=== PATIENT | female | born 2000 | race Caucasian/White ===

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

== ENCOUNTER → 2018-06-03 | Outpatient (CLI) | payer OTHER ==
--- NOTE | 2018-06-03 10:47 | RADIOLOGY REPORT (SQ) ---
EXAM DESCRIPTION: U/S ABDOMEN LIMITED W/O DOP COMPLETED DATE/TIME: 06/03/2018 9:40 am REASON FOR STUDY: ELEVATED LFT R74.8 ABNORMAL LEVELS OF OTHER SERUM ENZYMES COMPARISON: None. TECHNIQUE: Dynamic and static grayscale images acquired of the abdomen and recorded on PACS. Additio nal selected color Doppler and spectral images recorded. Note: Study does not meet criteria for complete doppler/duplex scan LIMITATIONS: None. FINDINGS: PANCREAS: The majority of the pancreas is obscured by overlying bowel gas. Pancreatic hea d is unremarkable in appearance. LIVER: The liver is echogenic consistent with fatty infiltration. No focal masses. LIVER VASCULATURE: Normal directional flow of the main portal vein and hepatic veins. GALLBLADDER: No stones. Normal wall thickness. No pericholecystic fluid. ULTRASOUND-DETECTED ROSS'S SIGN: Negative. INTRAHEPATIC DUCTS AND COMMON DUCT: CBD and intrahepatic ducts normal caliber. No filling defects. INFERIOR VENA CAVA: Normal flow. AORTA: No aneurysm. RIGHT KIDNEY:Normal size. Normal echogenicity. No solid or suspicious masses. No hydronephrosis. No c alcifications. PERITONEAL AND PLEURAL SPACES: No ascites or effusions. OTHER: No other significant finding. IMPRESSION: Fatty infiltrated liver. No other significant findings. TECHNICAL DOCUMENTATION: JOB ID: [id number] [employer]- All Rights Reserved Reading location - IP/workstation name: [email or web address]
== END ==
LOC: RAD 08:57
PROVIDERS: ATTEND Physician Assistant
DX: R74.8 Abnormal levels of other serum enzymes (principal)
CPT/HCPCS: 76705

== ENCOUNTER → 2018-06-29 | Outpatient (CLI) | payer OTHER ==
[2018-06-29 17:27] LABS: ABSOLUTE EOSINOPHILS # (AUTO) 0.2 10^3/uL (0.0-0.6); ABSOLUTE MONOCYTES (AUTO) 0.5 10^3/uL (0.1-1.4); ABSOLUTE NEUT (AUTO) 5.9 10^3/uL (1.7-8.2); BASOPHILS % (AUTO) 0.4 % (0-2); EOSINOPHILS % (AUTO) 2.3 % (0-6); HEMATOCRIT 41.1 % (36.0-47.0); HEMOGLOBIN 13.7 g/dL (12.0-15.5); LYMPHOCYTES % (AUTO) 22.9 % (13-45); MEAN CORPUSCULAR HEMOGLOBIN 29.5 pg (27.0-33.4); MEAN CORPUSCULAR HGB CONC 33.5 g/dL (32.0-36.0); MEAN CORPUSCULAR VOLUME 88 fl (80-97); MONOCYTES % (AUTO) 5.5 % (3-13); PLATELET COUNT 235 10^3/uL (150-450); RED BLOOD COUNT 4.66 10^6/uL (3.72-5.28); RED CELL DISTRIBUTION WIDTH 14.4 % (11.5-14.0); SEGMENTED NEUTROPHILS % (AUTO) 68.9 % (42-78); TOTAL CELLS COUNTED % (AUTO) 100 %; WHITE BLOOD COUNT 8.6 10^3/uL (4.0-10.5)
[2018-06-29 18:01] LABS: ALANINE AMINOTRANSFERASE 50 U/L (9-52); ALBUMIN 4.2 g/dL (3.5-5.0); ALKALINE PHOSPHATASE 84 U/L (38-126); ANION GAP 13 (5-19); ASPARTATE AMINO TRANSFERASE 30 U/L (14-36); BILIRUBIN,DIRECT 0.2 mg/dL (0.0-0.4); BILIRUBIN,TOTAL 0.4 mg/dL (0.2-1.3); BLOOD UREA NITROGEN 11 mg/dL (7-20); CALCIUM 9.5 mg/dL (8.4-10.2); CARBON DIOXIDE 26 mmol/L (22-30); CHLORIDE 105 mmol/L (98-107); GLUCOSE 78 mg/dL (75-110); LIPASE 71.2 U/L (23-300); POTASSIUM 4.4 mmol/L (3.6-5.0); SODIUM 143.5 mmol/L (137-145); TOTAL PROTEIN 7.2 g/dL (6.3-8.2)
== END ==
LOC: OD 16:25
PROVIDERS: ATTEND Physician Assistant
DX: R10.84 Generalized abdominal pain (principal)
CPT/HCPCS: 36415; 80053; 83690; 85025

== ENCOUNTER 2018-09-04 23:17 | Emergency (ER) | payer OTHER ==
[2018-09-04 23:56] VITALS: BP 112/73
== END 2018-09-05 02:00 | disposition left against medical advice (07) ==
LOC: ER 23:17
DX: Z53.21 Procedure and treatment not carried out due to patient leaving prior to being seen by health care provider (principal); R10.2 Pelvic and perineal pain

== ENCOUNTER 2018-09-05 14:07 | Emergency (ER) | payer OTHER ==
[2018-09-05 14:30] VITALS: BP 110/67
--- NOTE | 2018-09-05 14:56 | ER Document Report ---
ED Medical Screen (RME) - General Chief Complaint: Lower Abdominal Pain Stated Complaint: ABDOMINAL PAIN Time Seen by Provider: 09/05/18 14:52 Primary Care Provider: FRANCIS RIGGINS PA [Primary Care Provider] - Follow up as needed Mode of Arrival: Ambulatory Information source: Patient Notes: 18-year-old female presented to ED for right pelvic pain. She states she had her last menstrual period was 08/13/2018. She states the pain has been for 2 days she also has pain in her cervix. She is alert oriented respirations regular and unlabored no nausea vomiting or diarrhea. She states her primary care center to the emergency room because they did not have time to get a CT scan. She states she does not know if she is or not. The pain is in the right pelvic area not in the right lower quadrant. I have greeted and performed a rapid initial assessment of this patient. A comprehensive ED assessment and evaluation of the patient, analysis of test r esults and completion of medical decision making process will be conducted by an additional ED providers. Dictation of this chart was performed using voice recognition software; therefore, there may be some unintended grammatical errors. TRAVEL OUTSIDE OF THE [place] IN LAST 30 DAYS: No - Related Data Allergies/Adverse Reactions: No Known Drug Allergies Allergy (Verified 11/05/17 00:12) Past Medical History Renal/ Medical History: Denies: Hx Peritoneal Dialysis Physical Exam - Vital signs Vitals: Temp Pulse Resp BP Pulse Ox 98.5 F 83 16 110/67 98 09/05/18 14:29 09/05/18 14:29 09/05/18 14:29 09/05/18 14:29 09/05/18 14:29 Course - Vital Signs Vital signs: Temp Pulse Resp BP Pulse Ox 98.5 F 83 16 110/67 98 09/05/18 14:29 09/05/18 14:29 09/05/18 14:29 09/05/18 14:29 09/05/18 14:29 Doctor's Discharge - Discharge Referrals: FRANCIS RIGGINS PA [Primary Care Provider] - Follow up as needed
[2018-09-05 15:54] LABS: ALANINE AMINOTRANSFERASE 50 U/L (9-52); ALBUMIN 4.4 g/dL (3.5-5.0); ALKALINE PHOSPHATASE 96 U/L (38-126); ANION GAP 8 (5-19); ASPARTATE AMINO TRANSFERASE 34 U/L (14-36); BILIRUBIN,DIRECT 0.2 mg/dL (0.0-0.4); BILIRUBIN,TOTAL 0.3 mg/dL (0.2-1.3); BLOOD UREA NITROGEN 7 mg/dL (7-20); CALCIUM 9.2 mg/dL (8.4-10.2); CARBON DIOXIDE 27 mmol/L (22-30); CHLORIDE 103 mmol/L (98-107); GLUCOSE 82 mg/dL (75-110); POTASSIUM 3.9 mmol/L (3.6-5.0); SODIUM 138.3 mmol/L (137-145); TOTAL PROTEIN 7.1 g/dL (6.3-8.2)
[2018-09-05 15:59] LABS: APPEARANCE,URINE CLEAR; BILIRUBIN,URINE NEGATIVE (NEGATIVE); COLOR,URINE YELLOW; GLUCOSE, URINE NEGATIVE (NEGATIVE); KETONES,URINE NEGATIVE (NEGATIVE); LEUKOCYTE ESTERASE,URINE LARGE (NEGATIVE); NITRITE,URINE NEGATIVE (NEGATIVE); PROTEIN,URINE NEGATIVE (NEGATIVE); URINE SPECIFIC GRAVITY 1.017; UROBILINOGEN,URINE NEGATIVE mg/dL (<2.0)
--- NOTE | 2018-09-05 16:31 | RADIOLOGY REPORT (SQ) ---
EXAM DESCRIPTION: U/S NON-OB PELVIS TV W/O DOP COMPLETED DATE/TIME: 09/05/2018 4:19 pm REASON FOR STUDY: Right pelvic pain COMPARISON: None. TECHNIQUE: Dynamic and static grayscale images acquired of the pelvis via transvaginal approach and recorded on PACS. Additional selected color Doppler and spectral images recorded. LIMITATIONS: None. FINDINGS: UTERUS: Contour normal. No mass. ENDOMETRIAL STRIPE: No focal or generalized thickening. No masses. CERVIX: Nabothian cysts. RIGHT OVARY AND DOPPLER: Normal size. A complex solid appearing 1.5 x 1.3 x 1.1 cm area with periphe ral blood flow demonstrated. Normal arterial vascular flow without evidence for torsion. LEFT OVARY AND DOPPLER: Normal size. No worrisome masses. Normal arterial vascular flow without evide nce for torsion. FREE FLUID: Small to mild amount of free fluid in the cul-de-sac may be on a physiologic basis. OTHER: No other significant finding. MEASUREMENTS: UTERUS: 6.9 x 4.6 x 3.7 cm ENDOMETRIAL STRIPE: 1.5 cm RIGHT OVARY: 3.6 x 3.2 x 2.5 cm LEFT OVARY: 2.7 x 2.8 x 1.5 cm IMPRESSION: 1. A complex solid appearing area in the right ovary. Correlation suggested. 2. Small subcentimeter Nabothian cyst in the cervix region. 3. Small to mild amount of free fluid in the cul-de-sac may be on a physiologic basis. TECHNICAL DOCUMENTATION: JOB ID: [id number] [employer]- All Rights Reserved Rev-07/16 Reading location - IP/workstation name: [email or web address]
[2018-09-05 16:41] LABS: ABSOLUTE EOSINOPHILS # (AUTO) 0.3 10^3/uL (0.0-0.6); ABSOLUTE LYMPHOCYTES (AUTO) 2.6 10^3/uL (0.5-4.7); ABSOLUTE MONOCYTES (AUTO) 0.6 10^3/uL (0.1-1.4); ABSOLUTE NEUT (AUTO) 7.3 10^3/uL (1.7-8.2); BASOPHILS % (AUTO) 0.3 % (0-2); EOSINOPHILS % (AUTO) 2.6 % (0-6); HEMATOCRIT 41.1 % (36.0-47.0); HEMOGLOBIN 13.9 g/dL (12.0-15.5); LYMPHOCYTES % (AUTO) 24.4 % (13-45); MEAN CORPUSCULAR HEMOGLOBIN 29.6 pg (27.0-33.4); MEAN CORPUSCULAR HGB CONC 33.8 g/dL (32.0-36.0); MEAN CORPUSCULAR VOLUME 88 fl (80-97); MONOCYTES % (AUTO) 5.2 % (3-13); PLATELET COUNT 250 10^3/uL (150-450); RED BLOOD COUNT 4.69 10^6/uL (3.72-5.28); RED CELL DISTRIBUTION WIDTH 13.6 % (11.5-14.0); SEGMENTED NEUTROPHILS % (AUTO) 67.5 % (42-78); TOTAL CELLS COUNTED % (AUTO) 100 %; WHITE BLOOD COUNT 10.8 10^3/uL (4.0-10.5)
[2018-09-05] MEDS ORDERED: NORMAL SALINE 1000 ML 1,000 ML IV ONE (19:31)
[2018-09-05] MEDS ORDERED: MORPHINE SULFATE 10 MG/ML INJ IV ONE (19:31)
[2018-09-05] MEDS ORDERED: ONDANSETRON HCL INJ/PF 4 MG/2 ML SDV IV ONE (19:31)
--- NOTE | 2018-09-05 21:36 | ER Document Report ---
ED General - General Chief Complaint: Lower Abdominal Pain Stated Complaint: ABDOMINAL PAIN Time Seen by Provider: 09/05/18 14:52 Primary Care Provider: FRANCIS RIGGINS PA [Primary Care Provider] - Follow up in 3-5 days Mode of Arrival: Ambulatory TRAVEL OUTSIDE OF THE [place] IN LAST 30 DAYS: No - HPI Notes: 18-year-old female to the emergency department with with complaints of right-sided pelvic pain that has gotten progressively worse since last night with associated urinary frequency and dysuria. She admits to vaginal discharge as well but denies any concerns for STDs. She was seen by her primary care physician and sent over for further evaluation for right lower quadrant abdominal pain. She states that her period was 2 weeks ago and she has never had an STD. States that she feels like she has pressure in her lower abdomen. Denies any fevers, chills, chest pain, shortness of breath, nausea, vomiting, diarrhea, headache. States she had a pelvic exam at her primary care's office today - Related Data Allergies/Adverse Reactions: No Known Drug Allergies Allergy (Verified 11/05/17 00:12) Past Medical History - General Information source: Patient, Relative - Social History Smoking Status: Never Smoker Frequency of alcohol use: None Drug Abuse: None Lives with: Spouse/Significant other Family History: Reviewed & Not Pertinent Patient has suicidal ideation: No Patient has homicidal ideation: No Renal/ Medical History: Denies: Hx Peritoneal Dialysis Review of Systems - Review of Systems Constitutional: denies: Chills, Fever EENT: No symptoms reported Cardiovascular: denies: Chest pain, Palpitations Respiratory: denies: Cough, Short of breath Gastrointestinal: Abdominal pain, Nausea, Poor appetite. denies: Diarrhea, Vomiting Genitourinary: Dysuria, Frequency, Urgency. denies: Flank pain, Hematuria Female Genitourinary: Vaginal discharge, Vaginal bleeding. denies: , Vaginal odor, Painful intercourse Musculoskeletal: No symptoms reported Skin: No symptoms reported Neurological/Psychological: No symptoms reported -: Yes All other systems reviewed and negative Physical Exam - Vital signs Vitals: Temp Pulse Resp BP Pulse Ox 98.5 F 83 16 110/67 98 09/05/18 14:29 09/05/18 14:29 09/05/18 14:29 09/05/18 14:29 09/05/18 14:29 Interpretation: Normal - General General appearance: Appears well In distress: Mild - Mild pain discomfort - HEENT Head: Normocephalic, Atraumatic Eyes: Normal Pupils: PERRL - Respiratory Respiratory status: No respiratory distress Chest status: Nontender Breath sounds: Normal Chest palpation: Normal - Cardiovascular Rhythm: Regular Heart sounds: Normal auscultation Murmur: No - Abdominal Inspection: Obese Distension: No distension Bowel sounds: Normal Tenderness: Tender - Positive tenderness to palpation over the right lower quadrant with guarding. No rebound. No Rovsing's. Negative Stern sign. Nontender to palpation to the left lower quadrant or suprapubic abdomen Organomegaly: No organomegaly - Genitourinary External exam: Normal Speculum exam: No: Other - Patient declined speculum exam because she already had a speculum exam at her primary care physician's Vaginal bleeding: Mild Bimanuel exam: Adnexal tenderness - There is mild tenderness to palpation to bilateral adnexa but the palpation to the right adnexa is significantly worse. Patient states that she has some mild cervical discomfort with palpation to the cervix. She has mild vaginal bleeding - Back Back: Normal. No: CVA tenderness - Extremities General upper extremity: Normal inspection, Nontender, Normal color, Normal ROM, Normal temperature General lower extremity: Normal inspection, Nontender, Normal color, Normal ROM, Normal temperature, Normal weight bearing. No: Brant's sign - Neurological Neuro grossly intact: Yes Cognition: Normal Orientation: AAOx4 T[place]i Coma Scale Eye Opening: Spontaneous [place] Coma Scale Verbal: Oriented [place] Coma Scale Motor: Obeys Commands T[place]i Coma Scale Total: 15 Speech: Normal Motor strength normal: LUE, RUE, LLE, RLE Sensory: Normal - Psychological Associated symptoms: Normal affect, Normal mood - Skin Skin Temperature: Warm Skin Moisture: Dry Skin Color: Normal Course - Vital Signs Vital signs: Temp Pulse Resp BP Pulse Ox 98.5 F 83 16 110/67 98 09/05/18 14:29 09/05/18 14:29 09/05/18 14:29 09/05/18 14:29 09/05/18 14:29 - Laboratory Result Diagrams: 09/05/18 15:10 09/05/18 15:10 Laboratory results interpreted by me: 09/05/18 09/05/18 15:10 15:10 WBC 10.8 H Urine Blood SMALL H Ur Leukocyte Esterase LARGE H - Diagnostic Test Radiology reviewed: Image reviewed, Reports reviewed Radiology results interpreted by me: 09/06/18 noted ultrasound reading with possible right ovarian cyst. She is very tender to the right lower quadrant on exam and has some mild leukocytosis. Noted UTI. Despite other possibilities for her right pelvic pain such as ovarian cyst and UTI do think it is prudent to evaluate for possible appendicitis. She has never had an appendectomy. We will plan for CT of the abdomen for further evaluation. Noted CT reading which further comments on to right hemorrhagic ovarian cyst. No evidence of appendicitis. Has had improvement of pain since pain medicines. Rounded with her and her to discuss CT results. Will discharge with pain medicine as well as antibiotics for urinary tract infection. We will have her follow with [facility] for repeat ultrasound in 10 to 14 days. Urged to return if worsening pain, intractable nausea vomiting, fevers, unable to keep her medicines down. She agrees with the plan. Impression: Right sided hemorrhagic ovarian cyst, UTI. Mild leukocytosis with a white blood count of 10.8 but there is no bandemia or other evidence of solving sepsis. Patient has had improvement of pain with pain control here in the emergency department and she has had imaging study that is negative for appendicitis. She has good flow to her ovaries on ultrasound. We will have her follow with [facility]. Gave patient strict precautions to return if worse. Discharge - Discharge Clinical Impression: Right ovarian cyst, Pelvic pain, UTI (urinary tract infection) Condition: Stable Disposition: HOME, SELF-CARE Additional Instructions: PUSH FLUIDS. REST AT HOME. COMPLETE ANTIBIOTICS. FOLLOW UP WITH YOUR PHYSICIAN IN THE NEXT 3-5 DAYS. REPEAT ULTRASOUND IN 10 DAYS. TAKE MEDICINES PRESCRIBED. Prescriptions: Cephalexin Monohydrate [Keflex 500 mg Capsule] 500 mg PO BID 7 Days #14 capsule Naproxen [Naprosyn] 500 mg PO BID #20 tablet Referrals: FRANCIS RIGGINS PA [Primary Care Provider] - Follow up in 3-5 days
--- NOTE | 2018-09-05 22:49 | RADIOLOGY REPORT (SQ) ---
EXAM DESCRIPTION: CT ABDOMEN PELVIS WITH IV CONTRAST COMPLETED DATE/TME: 09/05/2018 00:00 CLINICAL HISTORY: 18 years Female RLQ abd pain COMPARISON: Ultrasound 09/05/2018 TECHNIQUE: Contiguous axial images obtained through the abdomen and pelvis following IV contrast. Reformatted images obtained. This exam was performed according to our department optimization program which includes automated exposure control, adjustment of the mA and/or kv according to patient size and/or use of iterative reconstruction technique. FINDINGS: The liver appears unremarkable. The spleen and pancreas appear unremarkable. No adrenal masses. The kidneys appear unremarkable. No hydronephrosis. The gallbladder is visualized. No aneurysmal dilatation of the aorta. No bowel obstruction. The appendix is unremarkable. Small amount of free fluid in the pelvis. Small hyperdense area in the right ovary. Suspect that this represents a collapsed hemorrhagic cyst measuring 1.5 cm. This has been previously evaluated with ultrasound. Recommend follow-up in one to two cycles to document resolution. IMPRESSION: Small amount of fluid in the pelvis Suspect that the abnormality in the right ovary represents a collapsed hemorrhagic cyst measuring 1.5 cm. Recommend follow-up with ultrasound in one to two cycles to document resolution Small amount of fluid in the pelvis
[2018-09-05] MEDS ORDERED: KETOROLAC TROMETHAMINE INJ/PF 30 MG/1 ML SDV IV ONE (23:09)
== END 2018-09-05 23:35 | disposition home or self-care (01) ==
LOC: ER 14:07
DX: N39.0 Urinary tract infection, site not specified (principal); N83.201 Unspecified ovarian cyst, right side; R10.2 Pelvic and perineal pain; R10.813 Right lower quadrant abdominal tenderness; R35.0 Frequency of micturition; R30.0 Dysuria; R11.0 Nausea; R63.0 Anorexia; D72.829 Elevated white blood cell count, unspecified
CPT/HCPCS: 99284; 96361; 96374; 96375; 36415; 87086; 84702; 85025; 80053; 81001; 76830; 74177; J1885; J2270; J2405; J7030

== ENCOUNTER → 2018-11-25 | Outpatient (CLI) | payer OTHER ==
--- NOTE | 2018-11-25 13:40 | RADIOLOGY REPORT (SQ) ---
EXAM DESCRIPTION: CHEST PA/LATERAL COMPLETED DATE/TIME: 11/25/2018 1:29 pm REASON FOR STUDY: COUGH COMPARISON: None. EXAM PARAMETERS: NUMBER OF VIEWS: two views TECHNIQUE: Digital Frontal and Lateral radiographic views of the chest acquired. RADIATION DOSE: NA LIMITATIONS: none FINDINGS: LUNGS AND PLEURA: Slight peribronchial cuffing may be on the basis of viral syndrome vers us reactive airway disease. No acute pulmonary consolidation. No pneumothorax or pleural effusion. MEDIASTINUM AND HILAR STRUCTURES: No masses or contour abnormalities. HEART AND VASCULAR STRUCTURES: Heart normal size. No evidence for failure. BONES: No acute findings. HARDWARE: None in the chest. OTHER: No other significant finding. IMPRESSION: 1. No acute pulmonary findings. 2. Slight peribronchial cuffing may be on the basis of viral syndrome versus reactive airway disease. TECHNICAL DOCUMENTATION: JOB ID: [id number] [employer]- All Rights Reserved Reading location - IP/workstation name: [email or web address]
== END ==
LOC: OD 13:15
PROVIDERS: ATTEND Physician Assistant
DX: R05 Cough (principal)
CPT/HCPCS: 71046

== ENCOUNTER 2019-03-16 16:27 | Emergency (ER) | payer OTHER ==
--- NOTE | 2019-03-16 17:18 | ER Document Report ---
HPI - HPI Time Seen by Provider: 03/16/19 16:53 Pain Level: 4 Notes: 19-year-old female 1 para 0 who is 5 weeks presents emergency room for complaints of lower back pain after sitting on the toilet this morning trying to have a bowel movement. Patient states she has a history of chronic constipation, typically does not have a bowel movement "once a month". Patient has been trying prune juice. Patient states flatus was a week ago she thinks that then states she may have passed one yesterday. Patient denies any abdominal surgeries. She has been managing chronic constipation. Denies any abdominal pain. Denies any melena. Patient has been trying to increase her prune juice. States she did try an enema once a week and a half ago. Patient states she was straining while she was on the toilet this morning, reports that she has bilateral lower back pain when she is in a sitting position no history of trauma. Patient has not tried any stool softeners, and a mild milk of magnesium, will need tried enema once. Patient has not been seen by her JOB PRINTER for this issue aside from them recommending today increased prune juice with her chronic constipation. She denies taking prenatals with iron in it. denies fevers, chills, chest pain,palpitations, shortness of breath, dyspnea, nausea, vomiting, diarrhea, abdominal pain, hematuria,blurred vision, double vision, loss of vision, speech changes, LH, dizziness, syncope, headaches, wheezing, ST, URI, neck pain, weakness, bowel or bladder dysfunction, saddle anesthesia, numbness or tingling in bilateral upper or lower extremities equally, muscle paralysis, weakness in bilateral upper or lower extremities equally or rash. - REPRODUCTIVE LMP: november- Reproductive: REPORTS: : Past Medical History - General Information source: Patient - Social History Smoking Status: Never Smoker Chew tobacco use (# tins/day): No Frequency of alcohol use: None Drug Abuse: None Family History: Reviewed & Not Pertinent Patient has suicidal ideation: No Patient has homicidal ideation: No Renal/ Medical History: Denies: Hx Peritoneal Dialysis Vertical Provider Document - CONSTITUTIONAL Agree With Documented VS: Yes Exam Limitations: No Limitations General Appearance: WD/WN Notes: PHYSICAL EXAMINATION: reviewed vital signs by RN GENERAL: Well-appearing, well-nourished and in no acute distress. HEAD: Atraumatic, normocephalic. EYES: Pupils equal round and reactive to light, extraocular movements intact, conjunctiva are normal. ENT: Nares patent, oropharynx clear without exudates. Moist mucous membranes. NECK: Normal range of motion, supple without lymphadenopathy LUNGS: Breath sounds clear to auscultation bilaterally and equal. No wheezes rales or rhonchi. HEART: Regular rate and rhythm without murmurs ABDOMEN: Soft, nontender, nondistended abdomen. No guarding, no rebound. No masses appreciated. Bowel sounds heard in all quadrants. No CVA tenderness appreciated bilaterally. Female : deferred Musculoskeletal: Normal range of motion, no pitting or edema. No cyanosis. No pain flexion and extension. negative straight leg test. Normal hip rotation. DTR +2 in BLE equally. Strength 5 out of 5 both distally and proximally to bilateral lower extremities normal motor and sensory function in BLE equally. Distal pulses + 2 BLE equally. Noted paraspinal tenderness near L2 and L3. Strength 5 out of 5 in bilateral lower extremities equally. no spinal tenderness. No CVA tenderness bilaterally. Femoral pulses + 2 bilaterally and equally. No abrasions, scars, lacerations, ecchymosis of any recent trauma. normal gait. NEUROLOGICAL: Cranial nerves grossly intact. Normal speech, normal gait. Normal sensory, motor exams PSYCH: Normal mood, normal affect. SKIN: Warm, Dry, normal turgor, no rashes or lesions noted. - INFECTION CONTROL TRAVEL OUTSIDE OF THE [place] IN LAST 30 DAYS: No Course - Re-evaluation Re-evalutation: 03/16/19 19:38 Afebrile, vital stable no distress. Nurse's notes reviewed. Patient states she just wanted to make sure "everything was okay" because she is 5 weeks , she refuses to take laxative also present indicating the first trimester patient is not using any enema or any stool softeners only drinking prune juice. consulted with Dr. Charles hall, supervising emergency room physician. She felt that patient was a low risk ACUTE APPENDICITIS, BOWEL OBSTRUCTION, ACUTE CHOLECYSTITIS, PERFORATED DIVERTICULITIS, INCARCERATED HERNIA, PANCREATITIS, PELVIC INFLAMMATORY DISEASE, PERFORATED ULCER, ECTOPIC , or TUBO-OVARIAN ABSCESS and consideration that due to patient being 5 weeks and unable to get x-rays, with a history of chronic constipation without any history of abdominal surgeries. Urinalysis was negative for any UTI, confirmed patient's with a positive hCG.discussed need for a regimen of Colace, MiraLAX and enemas to help with regular bowel movements along with prune juice, considering that the prenatals does have iron in it daily. thus I consider the discharge disposition reasonable. Also, there is no evidence or peritonitis, sepsis, or toxicity. I have reevaluated this patient multiple times and no significant life threatening changes are noted. The patient and I have discussed the diagnosis and risks, and we agree with discharging home with close follow-up with the understanding that symptoms and presentations can change. We also discussed returning to the Emergency Department immediately if new or worsening symptoms occur. We have discussed the symptoms which are most concerning (e.g., bloody stool, fever, changing or worsening pain, vomiting) that necessitate immediate return. - Vital Signs Vital signs: Temp Pulse Resp BP Pulse Ox 98.2 F 76 16 120/61 100 03/16/19 16:46 03/16/19 16:46 03/16/19 16:46 03/16/19 16:46 03/16/19 16:46 Discharge - Discharge Clinical Impression: Constipation, Condition: Stable Disposition: HOME, SELF-CARE Instructions: Constipation ([facility]), ([facility]) Additional Instructions: Your urinalysis was normal. start a regimen of Colace, milk of magnesium and enema. Increase oral hydration, follow-up with your JOB PRINTER. Apply heat to lower back, try to avoid straining while using the restroom. Return to the emergency room if symptoms become worse such as fever, worsening pain, vaginal bleeding, abdominal pain etc. Return immediately for any new or worsening symptoms. Follow up with primary care provider, call tomorrow to make followup appointment. Prescriptions: Docusate Sodium [Colace] 1 - 2 tab PO DAILY #30 capsule Sodium Phosphate,[place]-Dibasic [Enema] 133 ml RC PRN PRN #3 enema PRN Reason: Magnesium Hydroxide [Milk Of Magnesia] 800 mg PO HSP PRN #1 bottle PRN Reason: Referrals: JACKIE CORTES PA [Primary Care Provider] - Follow up as needed GREGG MG MD [ACTIVE STAFF] - Follow up in 3-5 days
[2019-03-16 18:07] LABS: APPEARANCE,URINE CLOUDY; BILIRUBIN,URINE NEGATIVE (NEGATIVE); COLOR,URINE YELLOW; GLUCOSE, URINE NEGATIVE (NEGATIVE); KETONES,URINE 20 mg/dL (NEGATIVE); LEUKOCYTE ESTERASE,URINE NEGATIVE (NEGATIVE); NITRITE,URINE NEGATIVE (NEGATIVE); PROTEIN,URINE NEGATIVE (NEGATIVE); URINE SPECIFIC GRAVITY 1.019; UROBILINOGEN,URINE NEGATIVE mg/dL (<2.0)
[2019-03-16 19:02] VITALS: BP 122/62
== END 2019-03-16 19:02 | disposition home or self-care (01) ==
LOC: ER 16:27
DX: O99.611 Diseases of the digestive system complicating pregnancy, first trimester (principal); K59.09 Other constipation; O99.89 Other specified diseases and conditions complicating pregnancy, childbirth and the puerperium; M54.5 Low back pain; Z3A.01 Less than 8 weeks gestation of pregnancy
CPT/HCPCS: 81001; 81025; 99283

== ENCOUNTER → 2019-05-05 | Outpatient (CLI) | payer MEDICAID ==
--- NOTE | 2019-05-05 16:53 | RADIOLOGY REPORT (SQ) ---
EXAM DESCRIPTION: U/S [id number] TRNABD 1GES W/ODOP COMPLETED DATE/TIME: 05/05/2019 1:55 pm REASON FOR STUDY: Z34.01 ENCNTR FOR SUPRVSN OF NORMAL FIRST PREG, FIRST TRIMESTER Z34.01 ENCNTR FOR SUPRVSN OF NORMAL FIRST PREG, FIRST TRIMES. Unknown LMP. No reported symptoms. COMPARISON: None. TECHNIQUE: Transabdominal static and realtime grayscale images acquired of the pelvis. Additional se lected spectral and color Doppler images recorded. All images stored on PACs. bHCG: Not available CLINICAL DATES: Unknown LIMITATIONS: None. FINDINGS: FETUS: Single Living intrauterine . A yolk sac is not definitely identified. ULTRASOUND EGA: 8 weeks 5 days ULTRASOUND LUZ: 12/10/2019 EFW: Not applicable less than 20 weeks. CRL: 1.4 cm FHR: 85 beats per minute. SURVEY: Too early to assess. AMNIOTIC FLUID: The gestational sac has an oval oblong contour. PLACENTA: Not yet developed due to early gestation. SUBCHORIONIC BLEED: There is a moderate subchorionic hemorrhage. SIZE OF BLEED: Moderate UTERUS: No masses. No anomalies. CERVICAL LENGTH: 3.7 cm Closed. RIGHT ADNEXA: Normal ovary with normal vascular flow. No adnexal free fluid. No adnexal masses. LEFT ADNEXA: Normal ovary with normal vascular flow. No adnexal free fluid. No adnexal masses. FREE FLUID: None. OTHER: No other significant finding. IMPRESSION: Single live intrauterine of gestational age 8 weeks 5 days. The gestational s ac has an oval appearance with a moderate subchorionic hemorrhage. Close clinical follow-up is recom mended. EGA 8 weeks 5 days. Trimester of : First trimester - 0 to 13 weeks. TECHNICAL DOCUMENTATION: JOB ID: [id number] 2010 [employer]- All Rights Reserved rev-07/16 Reading location - IP/workstation name: [email or web address]
== END ==
LOC: RAD 14:03
PROVIDERS: ATTEND Midwife
DX: Z34.01 Encounter for supervision of normal first pregnancy, first trimester (principal); Z3A.08 8 weeks gestation of pregnancy
CPT/HCPCS: 76801

== ENCOUNTER 2019-05-19 09:35 | Day surgery (SDC) | payer MEDICAID ==
[~2019-05-19 09:35] MED LIST: FENTANYL CITRATE INJ/PF 100 MCG/2 ML AMPUL ONE; KETAMINE HCL INJ 500 MG/10 ML VIAL ONE; LIDOCAINE 0.5% INJ-PF (5 MG/ML) 50 ML SDV ONE; MIDAZOLAM 2 MG/2 ML INJ ONE; ONDANSETRON HCL INJ/PF 4 MG/2 ML SDV ONE; PROPOFOL INJ 200 MG/20 ML VIAL IV ONE
[2019-05-19] MEDS ORDERED: METOCLOPRAMIDE HCL INJ/PF 10 MG/2 ML SDV ONE (10:45)
[2019-05-19] MEDS ORDERED: MIDAZOLAM 2 MG/2 ML INJ ONE ×2 (10:45→11:46)
[2019-05-19] MEDS ORDERED: FAMOTIDINE INJ/PF 20 MG/2 ML SDV IV ONE (10:46)
[2019-05-19] MEDS ORDERED: ALBUTEROL SULFATE 0.083% NEB 2.5 MG/3 ML AMPUL NEB ONE (11:01)
[2019-05-19 11:05] LABS: HEMATOCRIT 35.7 % (36.0-47.0); HEMOGLOBIN 12.7 g/dL (12.0-15.5); MEAN CORPUSCULAR HEMOGLOBIN 31.4 pg (27.0-33.4); MEAN CORPUSCULAR HGB CONC 35.7 g/dL (32.0-36.0); MEAN CORPUSCULAR VOLUME 88 fl (80-97); PLATELET COUNT 228 10^3/uL (150-450); RED BLOOD COUNT 4.07 10^6/uL (3.72-5.28); RED CELL DISTRIBUTION WIDTH 13.5 % (11.5-14.0); WHITE BLOOD COUNT 8.4 10^3/uL (4.0-10.5)
[2019-05-19 11:13] LABS: APPEARANCE,URINE CLOUDY; BILIRUBIN,URINE NEGATIVE (NEGATIVE); COLOR,URINE YELLOW; GLUCOSE, URINE NEGATIVE (NEGATIVE); KETONES,URINE NEGATIVE (NEGATIVE); LEUKOCYTE ESTERASE,URINE NEGATIVE (NEGATIVE); NITRITE,URINE NEGATIVE (NEGATIVE); PROTEIN,URINE NEGATIVE (NEGATIVE); URINE SPECIFIC GRAVITY 1.026; UROBILINOGEN,URINE NEGATIVE mg/dL (<2.0)
[2019-05-19] MEDS ORDERED: FENTANYL CITRATE INJ/PF 100 MCG/2 ML AMPUL ONE (11:46)
[2019-05-19] MEDS ORDERED: ONDANSETRON HCL INJ/PF 4 MG/2 ML SDV ONE (11:46)
[2019-05-19] MEDS ORDERED: PROPOFOL INJ 200 MG/20 ML VIAL IV ONE (11:47)
[2019-05-19] MEDS ORDERED: ONDANSETRON HCL INJ/PF 4 MG/2 ML SDV IV PRN (12:27)
[2019-05-19] MEDS ORDERED: PROMETHAZINE HCL INJ 25 MG/1 ML VIAL IV PRN ×2 (12:27)
[2019-05-19] MEDS ORDERED: FENTANYL CITRATE INJ/PF 100 MCG/2 ML AMPUL IV PRN ×3 (12:27)
[2019-05-19] MEDS ORDERED: DIPHENHYDRAMINE HCL 50 MG/ML VIAL IV PRN (12:27)
[2019-05-19] MEDS ORDERED: MORPHINE SULFATE 10 MG/ML INJ IV PRN (12:27)
[2019-05-19] MEDS ORDERED: MEPERIDINE HCL/PF INJ 25 MG/1 ML DISP.SYRIN IV PRN (12:27)
[2019-05-19] MEDS ORDERED: OXYCODONE-ACETAMINOPHEN 5-325 MG TABLET PO PRN ×2 (12:47)
[2019-05-19] MEDS ORDERED: RINGERS SOLUTION,LACTATED 1,000 ML IV PRN (12:47)
--- NOTE | 2019-05-19 12:54 | Operative Report ---
Operative Report DATE OF SURGERY: 05/19/19 PREOPERATIVE DIAGNOSIS: Missed at 8 weeks POSTOPERATIVE DIAGNOSIS: Same OPERATION: Suction D&C SURGEON: SEAMUS MEJIA ANESTHESIA: LMAC TISSUE REMOVED OR ALTERED: Products of conception COMPLICATIONS: None ESTIMATED BLOOD LOSS: 100 cc INTRAOPERATIVE FINDINGS: Uterus sounded to 12 cm, copious products of conception obtained PROCEDURE: Patient was taken to the operating room prepared and draped in a normal sterile fashion in a dorsal lithotomy position. An in and out cath was performed of approximately 100 cc of clear urine. Sterile speculum was placed into the vagina and the cervix was prepped with Betadine and grasped on the anterior lip with a single-tooth tenaculum. The uterus was sounded to the above findings. The cervix was dilated to accommodate an 8 mm curved curette. The curved curette was passed x3 under suction and a small amount of decidual type tissue was removed. Curettage was performed using Kevorkian curette. Good great was noted 360 degrees around. More pass with the suction curette no further tissue. The procedure was then concluded Metzenbaums were removed sponge lap and needle counts were correct x2. She was taken to recovery in stable condition
[2019-05-19] MEDS ORDERED: IBUPROFEN 800 MG TABLET PO PRN (13:30)
[2019-05-19] MEDS ORDERED: KETOROLAC TROMETHAMINE INJ/PF 30 MG/1 ML SDV IV PRN (13:30)
[2019-05-19 14:54] VITALS: BP 101/70
== END 2019-05-19 14:35 | disposition home or self-care (01) ==
LOC: OROUT 09:35
PROVIDERS: ATTEND Obstetrics & Gynecology
DX: O02.1 Missed abortion (principal); E03.9 Hypothyroidism, unspecified; J45.20 Mild intermittent asthma, uncomplicated; Z87.891 Personal history of nicotine dependence; Z79.899 Other long term (current) drug therapy
CPT/HCPCS: 86900; 86901; 36415; 86850; 85027; 81001; 88305 ×2; 01965; 59820; J2250; J3010; J3490 ×2; J2765; J2405; J2704; S0028; 1965